=== PATIENT | male | born 1990 | race Caucasian/White ===

== ENCOUNTER 2017-07-11 14:23 | Emergency (ER) | payer MEDICAID ==
[~2017-07-11] VITALS: Ht 185.4 cm; Wt 96.4 kg
[2017-07-11] MEDS ORDERED: ZIPR60CA2 PO (15:59)
[2017-07-11] MEDS ORDERED: HYDR10TA4 PO (16:04)
[2017-07-11] MEDS ORDERED: ZIPRASIDONE 20 MG INJ IM ONE ×2 (16:30→16:35)
[2017-07-11 17:10] VITALS: BP 138/72
== END 2017-07-11 17:12 | disposition home or self-care (01) ==
LOC: ED 15:27
DX: F41.1 Generalized anxiety disorder (principal)
CPT/HCPCS: 96372; 99284; J3486; Q0177

== ENCOUNTER 2019-06-28 15:14 | Emergency (ER) | payer MEDICAID, OTHER ==
[~2019-06-28] VITALS: Ht 185.4 cm; Wt 88.6 kg
[~2019-06-28 15:14] MED LIST: HYDR-2995 PO; ZIPR60CA2 PO
[2019-06-28 15:19] VITALS: BP 138/74
[2019-06-28] MEDS ORDERED: FLUORESCEIN OPHTHALMIC 1 MG STRIP ONE (15:34)
[2019-06-28] MEDS ORDERED: PROPARACAINE OPHTH 0.5%, 15ML ONE (15:34)
[2019-06-28] MEDS ORDERED: VITAMINS (15:37)
== END 2019-06-28 16:30 | disposition home or self-care (01) ==
LOC: ED 16:15
DX: T15.11XA Foreign body in conjunctival sac, right eye, initial encounter (principal); X58.XXXA Exposure to other specified factors, initial encounter; Y93.89 Activity, other specified; Y92.89 Other specified places as the place of occurrence of the external cause; Y99.8 Other external cause status
CPT/HCPCS: 65222; 99284